=== PATIENT | male | born 1935 | race African-American/Black ===

== ENCOUNTER 2017-10-24 12:43 | Emergency (ER) | payer OTHER, MEDICARE ==
[~2017-10-24] VITALS: Ht 167.6 cm; Wt 100.0 kg
[~2017-10-24 12:43] MED LIST: ASPI81 PO; CIAL20TA PO; EDEX PO; HUMALOG SQ; HYDR-2768 PO; HYDR-3133 PO; LANTUSP SQ; PRIN20TA2 PO; SULF1TAB47 PO; ZITH250T PO; ZOVI200C24 PO
[2017-10-24 12:47] VITALS: BP 142/64; PULSE 64; RESP 22; TEMP 97.8; O2SAT 98
[2017-10-24] MEDS ORDERED: SODIUM CHLORIDE 0.9% FLUSH 10 ML FLUSH IVF PRN (13:15)
[2017-10-24] MEDS ORDERED: RESP: ALBUTEROL 2.5 MG/IPRATROPIUM 0.5 MG NEB (SCH) INH ONE (13:15)
[2017-10-24 13:24] VITALS: O2SAT 96
[2017-10-24 13:25] LABS: AUTOMATED NEUTROPHIL # 3.6 TH/MM3 (1.8-7.7); BASOPHIL # 0.1 TH/MM3 (0-0.2); EOSINOPHIL # 0.4 TH/MM3 (0-0.4); EOSINOPHIL % 5.5 % (0.0-4.0); HEMATOCRIT 37.5 % (39.0-51.0); HEMOGLOBIN 12.6 GM/DL (13.0-17.0); LYMPH % 39.7 % (9.0-44.0); LYMPHOCYTE # 3.2 TH/MM3 (1.0-4.8); MEAN CELL VOLUME 95.5 FL (80.0-100.0); MEAN CORPUSCULAR HEMOGLOBIN 32.2 PG (27.0-34.0); MEAN CORPUSCULAR HGB CONC 33.7 % (32.0-36.0); MEAN PLATELET VOLUME 8.9 FL (7.0-11.0); MONO % 9.2 % (0.0-8.0); MONOCYTE # 0.7 TH/MM3 (0-0.9); NEUT % 44.6 % (16.0-70.0); PLATELET COUNT 222 TH/MM3 (150-450); RED BLOOD COUNT 3.93 MIL/MM3 (4.50-5.90); RED CELL DISTRIBUTION WIDTH 13.5 % (11.6-17.2); WHITE BLOOD COUNT 8.1 TH/MM3 (4.0-11.0)
--- NOTE | 2017-10-24 13:25 | PD ---
HPI Chief Complaint: Respiratory Symptoms Time Seen by Provider: 13:06 Travel History International Travel<30 days: No Contact w/Intl Traveler<30days: No Traveled to known affect area: No History of Present Illness HPI 82-year-old male patient with history of diabetes, legally blind, presents to the ER today because he has had several weeks history of coughing, feels like he has phlegm but is not able to get it up, having chills. He denies fevers, chest pains, or other symptoms. His son states that they were concerned because is not going away like other cold symptoms. Modifying Factors: None Associated Signs & Symptoms: Cough, chills for several weeks Risk Factors: None PFSH Past Medical History Diabetes: Yes Diminished Hearing: Yes (BILATERAL HEARING AIDS) Hypertension: Yes Medical other: Yes (patient is legally blind ) Social History Alcohol Use: No Tobacco Use: No Substance Use: No Allergies-Medications (Allergen,Severity, Reaction): Coded Allergies: No Known Allergies (Verified Adverse Reaction, Unknown, 10/24/17) Reported Meds & Prescriptions Reported Meds & Active Scripts Active Reported Hydrochlorothiazide 25 Mg Tab 25 Mg PO DAILY Lantus Inj (Insulin Glargine) 1,000 Unit/10 Ml Vial 45 Units SQ HS Humalog Inj (Insulin Human Lispro) 1,000 Unit/10 Ml Vial 15 Units SQ ACHS Max dose at bedtime:( )units; sugars < 70,(0)units; sugars 150-199,(5)units; sugars 200-249,(10)units; sugars 250-299,(15)units; sugars 300-349,(20)units; sugars more than 349,(25)units. Review of Systems ROS Limitations: Hearing Impaired Except as stated in HPI: all other systems reviewed are Neg Physical Exam Narrative GENERAL: Well-developed elderly -[place] male patient currently in mild distress. Awake and oriented 3. SKIN: Focused skin assessment warm/dry. HEAD: Atraumatic. Normocephalic. EYES: Pupils equal and round. No scleral icterus. No injection or drainage. ENT: No nasal bleeding or discharge. Mucous membranes pink and moist. NECK: Trachea midline. No JVD. CARDIOVASCULAR: Regular rate and rhythm. No murmur appreciated. RESPIRATORY: No accessory muscle use. Decreased throughout. Breath sounds equal bilaterally. GASTROINTESTINAL: Abdomen soft, non-tender, nondistended. Hepatic and splenic margins not palpable. MUSCULOSKELETAL: No obvious deformities. No clubbing. No cyanosis. No edema. NEUROLOGICAL: Awake and alert. No obvious cranial nerve deficits. Motor grossly within normal limits. Normal speech. PSYCHIATRIC: Appropriate mood and affect; insight and judgment normal. Data Data Last Documented VS Vital Signs Date Time Temp Pulse Resp B/P (MAP) Pulse Ox O2 Delivery O2 Flow Rate FiO2 10/24/17 14:44 97.9 60 19 156/71 (99) 97 Room Air Orders Orders Complete Blood Count With Diff (10/24/17 13:06) Basic Metabolic Panel (Bmp) (10/24/17 13:06) B-Type Natriuretic Peptide (10/24/17 13:06) Iv Access Insert/Monitor (10/24/17 13:06) Electrocardiogram (10/24/17 13:06) Ecg Monitoring (10/24/17 13:06) Oximetry (10/24/17 13:06) Oxygen Administration (10/24/17 13:06) Chest, Single Ap (10/24/17 13:06) Sodium Chloride 0.9% Flush (Ns Flush) (10/24/17 13:15) Albuterol-Ipratropium Neb (Duoneb Neb) (10/24/17 13:15) Ceftriaxone Inj (Rocephin Inj) (10/24/17 14:38) Azithromycin Inj (Zithromax Inj) (10/24/17 14:38) Blood Culture (10/24/17 14:38) Labs Laboratory Tests Test 10/24/17 13:14 White Blood Count 8.1 TH/MM3 Red Blood Count 3.93 MIL/MM3 Hemoglobin 12.6 GM/DL Hematocrit 37.5 % Mean Corpuscular Volume 95.5 FL Mean Corpuscular Hemoglobin 32.2 PG Mean Corpuscular Hemoglobin Concent 33.7 % Red Cell Distribution Width 13.5 % Platelet Count 222 TH/MM3 Mean Platelet Volume 8.9 FL Neutrophils (%) (Auto) 44.6 % Lymphocytes (%) (Auto) 39.7 % Monocytes (%) (Auto) 9.2 % Eosinophils (%) (Auto) 5.5 % Basophils (%) (Auto) 1.0 % Neutrophils # (Auto) 3.6 TH/MM3 Lymphocytes # (Auto) 3.2 TH/MM3 Monocytes # (Auto) 0.7 TH/MM3 Eosinophils # (Auto) 0.4 TH/MM3 Basophils # (Auto) 0.1 TH/MM3 CBC Comment DIFF FINAL Differential Comment Blood Urea Nitrogen 16 MG/DL Creatinine 1.23 MG/DL Random Glucose 49 MG/DL Calcium Level 8.8 MG/DL Sodium Level 144 MEQ/L Potassium Level 3.8 MEQ/L Chloride Level 107 MEQ/L Carbon Dioxide Level 29.6 MEQ/L Anion Gap 7 MEQ/L Estimat Glomerular Filtration Rate 69 ML/MIN B-Type Natriuretic Peptide 30 PG/ML MDM Medical Decision Making Medical Screen Exam Complete: Yes Emergency Medical Condition: Yes Medical Record Reviewed: Yes Interpretation(s) EKG shows NSR, no ST elevation or depression, and no arrhythmias. No significant T-wave inversions. With occasional PVC. Laboratory Tests Test 10/24/17 13:14 Red Blood Count 3.93 MIL/MM3 (4.50-5.90) Hemoglobin 12.6 GM/DL (13.0-17.0) Hematocrit 37.5 % (39.0-51.0) Monocytes (%) (Auto) 9.2 % (0.0-8.0) Eosinophils (%) (Auto) 5.5 % (0.0-4.0) Random Glucose 49 MG/DL (74-106) Estimat Glomerular Filtration Rate 69 ML/MIN (>89) Last 24 hours Impressions Chest X-Ray 10/24/17 1306 Signed Impressions: CONCLUSION: Left base infiltrate. Differential Diagnosis Bronchitis versus COPD exacerbation versus pneumonia Narrative Course Chest x-ray shows left-sided pulmonary infiltrate questionable for underlying interstitial pneumonia. He was given juice for low blood sugar on blood work. He was also given nebulizers in the ER. On reevaluation at 2:50 PM, he has stopped coughing, and vital signs are stable. At this point, he appears to be doing fairly well and IV antibiotics were given as a first dose in the ER after blood cultures are drawn. I have talked to his son regarding the risks and benefits of releasing him with close follow-up to primary care doctor versus admitting him, and at this point son is comfortable with taking him home so I will be releasing him with close follow-up to primary care doctor with p.o. antibiotics. Return for any worsening in symptoms. The plan has been discussed with patient son and he states understanding. Diagnosis Primary Impression: Pneumonia Med/Other Pt SpecificInfo: Prescription(s) given Scripts Albuterol 6.7 GM Inh (Proventil Hfa 6.7 GM Inh) 90 Mcg/Act Aer 2 PUFF INH Q4-6H Y for SHORTNESS OF BREATH, #1 INHALER 0 Refills Prov: Jeniffer Elam MD 10/24/17 Prednisone (Prednisone) 50 Mg Tab 50 MG PO DAILY for 5 Days, #5 TAB 0 Refills Prov: Jeniffer Elam MD 10/24/17 Azithromycin (Zithromax Z-Jim) 250 Mg Dspk 250 MG PO DIRECTED for Infection, #1 DSPK 0 Refills 500 MG (2 tabs) day 1, then 1 tab days 2-5. Prov: Jeniffer Elam MD 10/24/17 Disposition: 01 DISCHARGE HOME Condition: Stable Jeniffer Elam MD Oct 24, 2017 13:25
[2017-10-24 13:51] LABS: BICARBONATE 29.6 MEQ/L (21.0-32.0); CALCIUM 8.8 MG/DL (8.5-10.1); CREATININE 1.23 MG/DL (0.60-1.30)
--- NOTE | 2017-10-24 14:13 | RADRPT ---
EXAM DATE: 10/24/2017 1:31 PM EDT AGE/SEX: 82 years / Male INDICATIONS: Short of breath, cough CLINICAL DATA: This is the patient's initial encounter. Patient reports that signs and symptoms have been present for 1 month and indicates a pain score of 0/10. MEDICAL/SURGICAL HISTORY: None. None. COMPARISON: No prior [facility] exams available for comparison. FINDINGS: There is infiltrate in the left lung base. Right lung is grossly clear. Possible small left effusion. Cardiac contours are grossly satisfactory for technique and projection. CONCLUSION: Left base infiltrate. Electronically signed by: Pb Louie MD 10/24/2017 2:12 PM EDT
[2017-10-24] MEDS ORDERED: cefTRIAXone INJ 2,000 MG in SODIUM CHLORIDE 0.9% INJ 100 ML IV STA (14:38)
[2017-10-24] MEDS ORDERED: AZITHROMYCIN INJ 500 MG in SODIUM CHLOR 0.9% 250 ML INJ 250 ML IV STA (14:38)
[2017-10-24 14:44] VITALS: BP 156/71; PULSE 60; RESP 19; TEMP 97.9; O2SAT 97
[2017-10-24] MEDS ORDERED: LANTUS2P SQ (14:50)
[2017-10-24] MEDS ORDERED: HUMALOG SQ (14:50)
[2017-10-24] MEDS ORDERED: HYDR25TA5 PO (14:51)
[2017-10-24] MEDS ORDERED: ALBU6.7H INH (15:00)
[2017-10-24] MEDS ORDERED: PRED50 PO (15:00)
[2017-10-24] MEDS ORDERED: ZITHTAB PO (15:00)
[2017-10-24 16:40] VITALS: BP 133/78; TEMP 97.8
--- NOTE | 2017-10-25 15:36 | EKG ---
Date Performed: 10/24/2017 Time Performed: 14:02:47 PTAGE: 82 years EKG: Sinus rhythm WITH FIRST DEGREE AV BLOCK WITH OCCASIONAL VENTRICULAR PREMATURE COMPLEXES NONSPECIFIC T-WAVE ABNORM ALITY Since previous tracing, no significant change noted ABNORMAL ECG PREVIOUS TRACING : 07/06/2008 05.05.54 DOCTOR: Cassie Woods Interpretating Date/Time 10/25/2017 15:34:58
== END 2017-10-24 16:40 | disposition home or self-care (01) ==
LOC: NEPC 12:43
DX: J18.9 Pneumonia, unspecified organism (principal); B95.7 Other staphylococcus as the cause of diseases classified elsewhere; E11.9 Type 2 diabetes mellitus without complications; I44.0 Atrioventricular block, first degree; I10 Essential (primary) hypertension; Z79.4 Long term (current) use of insulin; Z79.899 Other long term (current) drug therapy
CPT/HCPCS: 71045; 80048; 83880; 85025; 86403; 87040; 87077; 87186; 87205; 93005; 94664; 96365; 96367; 99285; J0456; J0696; J7050